=== PATIENT | female | born 1955 ===

== ENCOUNTER 2023-01-18 06:07 | Day surgery (SDC) | payer OTHER ==
[~2023-01-18] VITALS: Ht 149.9 cm; Wt 59.9 kg
[~2023-01-18 06:07] MED LIST: ATORVASTATIN CA40 MG PO; ENALAPRIL-HCTZ1 EAC1 PO; GLIMEPIRIDE4 M1 PO; LANTUS SOL100 UNIT/1; SYNJARDY 12.5-1 EACH PO; SYNTHROID75 MCG PO
== END 2023-01-18 15:00 | disposition home or self-care (01) ==
LOC: CIR.AMB 06:07
PROVIDERS: ATTEND Orthopaedic Surgery
DX: M75.121 Complete rotator cuff tear or rupture of right shoulder, not specified as traumatic (principal); M24.111 Other articular cartilage disorders, right shoulder; M75.21 Bicipital tendinitis, right shoulder; Z20.822 Contact with and (suspected) exposure to COVID-19; I10 Essential (primary) hypertension